=== PATIENT | male | born 1995 | race Caucasian/White ===

== ENCOUNTER 2018-06-11 10:17 | Emergency (ER) | payer OTHER ==
[~2018-06-11] VITALS: Ht 177.8 cm; Wt 72.6 kg
[~2018-06-11 10:17] MED LIST: BACTRIM DS TAB1 EACH PO; HYDROCODONE-AP1 EAC6 PO; IBUPROFEN 800800 M1 PO; LOTRISONE CREAM15 GM TP; ONDANSETRON HCL4 M2 PO; PENICILLIN V P500 MG PO; ULTRAM 50MG TAB50 MG PO; ZOFRAN ODT4 MG PO
[2018-06-11 10:54] LABS: ABSOLUTE NEUTROPHILS 4.5 thou/uL (1.4-8.2); BASOPHILS 0.3 % (0.0-2.0); EOSINOPHILS 4.3 % (0.0-3.0); HEMATOCRIT 46.1 % (42.0-52.0); HEMOGLOBIN 15.8 gm/dL (14.0-18.0); LYMPHOCYTES 33.1 % (24.0-44.0); MCHC 34.3 g/dL (28.0-37.0); MCV 87.4 fL (80.0-100.0); MONOCYTES 7.1 % (1.0-8.0); PLATELET COUNT 151 thou/uL (150-400); POLYS 55.2 % (36.0-66.0); RBC 5.27 mil/uL (4.50-6.00); RDW 13.2 % (10.5-14.5); WBC 8.1 thou/uL (4.0-11.0)
[2018-06-11 11:24] LABS: URINE BILIRUBIN NEGATIVE (Negative); URINE BLOOD TRACE (Negative); URINE CLARITY CLEAR; URINE COLOR YELLOW; URINE GLUCOSE-RANDOM* NEGATIVE (Negative); URINE KETONES NEGATIVE (Negative); URINE LEUKOCYTES-REFLEX NEGATIVE (Negative); URINE NITRITE-REFLEX NEGATIVE (Negative); URINE PROTEIN (DIPSTICK) NEGATIVE (Negative); URINE SPECIFIC GRAVITY >= 1.030 (1.005-1.035); URINE UROBILINOGEN 0.2 E.U./dl (0.2-1.0)
[2018-06-11 11:31] LABS: AMP/METHAMP Negative (Negative); BARBITURATES Negative (Negative); BENZODIAZEPINES Negative (Negative); COCAINE Negative (Negative); METHADONE Negative (Negative); OPIATES Negative (Negative); PCP Negative (Negative)
[2018-06-11 11:54] LABS: CALCIUM 8.2 mg/dL (8.5-10.1); CREATININE 1.1 mg/dL (0.7-1.3); POTASSIUM 3.3 mmol/L (3.5-5.1)
[2018-06-11 12:00] LABS: ALBUMIN 3.7 g/dL (3.4-5.0); TOTAL BILIRUBIN 0.5 mg/dL (<0.1-1.0); TOTAL PROTEIN 6.3 g/dL (6.4-8.2)
[2018-06-11] MEDS ORDERED: ZOFRAN ODT4 M1 PO (13:29)
[2018-06-11] MEDS ORDERED: PHENERGAN 25 MG25 M1 PO (13:29)
[2018-06-11 13:59] VITALS: BP 111/44
== END 2018-06-11 14:04 | disposition home or self-care (01) ==
LOC: ER 10:17
PROVIDERS: Nurse Practitioner Family
DX: F12.988 Cannabis use, unspecified with other cannabis-induced disorder (principal)

== ENCOUNTER 2018-07-22 08:03 | Emergency (ER) | payer OTHER ==
[~2018-07-22] VITALS: Ht 175.3 cm; Wt 72.6 kg
[~2018-07-22 08:03] MED LIST changes: +PHENERGAN 25 MG25 M1 PO; +ZOFRAN ODT4 M1 PO
[2018-07-22 08:43] LABS: ABSOLUTE NEUTROPHILS 9.7 thou/uL (1.4-8.2); BASOPHILS 0.3 % (0.0-2.0); EOSINOPHILS 2.1 % (0.0-3.0); HEMATOCRIT 44.4 % (42.0-52.0); LYMPHOCYTES 17.3 % (24.0-44.0); MCH 29.4 pg (26.0-34.0); MCHC 33.7 g/dL (28.0-37.0); MCV 87.1 fL (80.0-100.0); MONOCYTES 4.6 % (1.0-8.0); PLATELET COUNT 209 thou/uL (150-400); POLYS 75.7 % (36.0-66.0); RDW 13.4 % (10.5-14.5); WBC 12.8 thou/uL (4.0-11.0)
[2018-07-22 08:53] LABS: CALCIUM 9.1 mg/dL (8.5-10.1); CREATININE 1.1 mg/dL (0.7-1.3); POTASSIUM 4.1 mmol/L (3.5-5.1)
[2018-07-22 08:59] LABS: ALBUMIN 3.8 g/dL (3.4-5.0); TOTAL BILIRUBIN 0.2 mg/dL (<0.1-1.0); TOTAL PROTEIN 6.9 g/dL (6.4-8.2)
[2018-07-22] MEDS ORDERED: ZOFRAN8 MG PO (10:10)
[2018-07-22 10:19] LABS: URINE BILIRUBIN NEGATIVE (Negative); URINE BLOOD NEGATIVE (Negative); URINE CLARITY CLEAR; URINE COLOR YELLOW; URINE GLUCOSE-RANDOM* NEGATIVE (Negative); URINE KETONES TRACE (Negative); URINE LEUKOCYTES-REFLEX NEGATIVE (Negative); URINE NITRITE-REFLEX NEGATIVE (Negative); URINE PROTEIN (DIPSTICK) NEGATIVE (Negative); URINE UROBILINOGEN 0.2 E.U./dl (0.2-1.0)
[2018-07-22 10:26] LABS: SSA (PROTEIN CONFIRMATORY) NEGATIVE (Negative)
[2018-07-22 10:41] LABS: AMP/METHAMP Negative (Negative); BARBITURATES Negative (Negative); BENZODIAZEPINES Negative (Negative); COCAINE Negative (Negative); METHADONE Negative (Negative); OPIATES Negative (Negative); PCP Negative (Negative)
[2018-07-22] MEDS ORDERED: PROMS25 WY RECTAL (11:02)
== END 2018-07-22 11:06 | disposition home or self-care (01) ==
LOC: ER 08:03
PROVIDERS: Emergency Medicine
DX: R11.2 Nausea with vomiting, unspecified (principal); R10.9 Unspecified abdominal pain; Z88.7 Allergy status to serum and vaccine; Z90.49 Acquired absence of other specified parts of digestive tract